=== PATIENT | male | born 1930 | race Caucasian/White ===

== ENCOUNTER 2016-09-26 09:08 | Day surgery (SDC) | payer MEDICARE ==
[2016-09-26] MEDS ORDERED: TETRACAINE HCL 0.5% 15 ML OPTH BTL OPTH ONE (13:37)
[2016-09-26] MEDS ORDERED: TOBRAMYCIN 0.3% OPTH DROP 5 ML BTL OPTH ONE (13:37)
[2016-09-26] MEDS ORDERED: DICLOFENAC SODIUM 2.5 ML DROPS OPTH ONE (13:37)
[2016-09-26] MEDS ORDERED: LIDOCAINE 2% MDV (20MG/ML) 20ML VIAL IV ONE ×2 (13:37→13:40)
[2016-09-26] MEDS ORDERED: PREDNISOLONE ACETATE 1% OPTH 10ML BOTTLE OPTH ONE (13:37)
[2016-09-26] MEDS ORDERED: EPINEPHRINE 1 MG/ML AMPUL SQ ONE (13:37)
[2016-09-26] MEDS ORDERED: TROPICAMIDE 1% 15ML BTL OP ONE (13:37)
[2016-09-26] MEDS ORDERED: NEOMYCIN/POLY./DEXAM OPTH OINT OPTH ONE (13:37)
[2016-09-26] MEDS ORDERED: PHENYLEPHRINE HCL 10% OPTH BTL OPTH ONE (13:37)
[2016-09-26] MEDS ORDERED: PROPOFOL 10 MG/ML VIAL IV ONE (13:40)
[2016-09-26] MEDS ORDERED: HYDRALAZINE 20MG/ML VIAL IV ONE (13:40)
--- NOTE | 2016-09-26 16:23 | OP NOTE CHAMES ---
DATE OF PROCEDURE: 09/26/16 PREOPERATIVE DIAGNOSES: 1. Nuclear sclerotic cataract, right eye. 2. Ocular hypertension, right eye. POSTOPERATIVE DIAGNOSES: 1. Nuclear sclerotic cataract, right eye. 2. Ocular hypertension, right eye. OPERATION: Phacoemulsification of cataractous lens with implantation of intraocular lens. LENS IMPLANT USED: Lorenzo Model PCB + 20.5 diopters. COMPLICATIONS: None. PROCEDURE IN DETAIL: Following a retrobulbar and facial block, the patient was prepped and draped in the usual fashion for eye surgery. A lid speculum was placed in the right eye after which a 2.4 mm tunnel wound was placed at the temporal limbus and dissected into clear cornea. A paracentesis was placed at 2 oclock hours to the left and right of the initial incision and the chamber deepened with Viscoelastic. The keratome was then used to enter the anterior chamber after which the continuous circular capsulorrhexis was accomplished without difficulty using a bent needle and a Utrata forceps. Hydrodissection and hydrodelineation of the lens was performed after which the nucleus of the lens was removed using the Phaco handpiece in the [id number] technique. The residual cortical material was irrigated and aspirated from the eye after which the bag and chamber were re-examined. The bag was re-inflated with Viscoelastic and the intraocular lens injected into the capsular bag where it centered well. The Viscoelastic was then copiously irrigated and aspirated from the eye after which the temporal tunnel wound and paracentesis were hydrated and the wounds were examined. They were noted to be watertight. The lid speculum was removed from the eye and the eye patched and shielded. The patient was transferred to the recovery room in satisfactory condition and given an appointment to be reexamined in the clinic later today or as directed by Dr. Mckenna. Emilio Mckenna M.D. Date & Time JOB NUMBER: [id number] MTDD
== END 2016-09-26 12:00 | disposition home or self-care (01) ==
LOC: EDBD → SUR 09:08
PROVIDERS: ATTEND Ophthalmology
DX: H25.11 Age-related nuclear cataract, right eye (principal); H40.051 Ocular hypertension, right eye
CPT/HCPCS: J0171

== ENCOUNTER 2016-10-10 10:06 | Day surgery (SDC) | payer MEDICARE ==
[2016-10-10] MEDS ORDERED: MIDAZOLAM HCL 2MG/2ML VIAL IV ONE (14:00)
[2016-10-10] MEDS ORDERED: LIDOCAINE 2% MDV (20MG/ML) 20ML VIAL IV ONE ×2 (14:00→14:26)
[2016-10-10] MEDS ORDERED: PROPOFOL 10 MG/ML VIAL IV ONE (14:00)
[2016-10-10] MEDS ORDERED: NEOMYCIN/POLY./DEXAM OPTH OINT OPTH ONE (14:26)
[2016-10-10] MEDS ORDERED: TETRACAINE HCL 0.5% 15 ML OPTH BTL OPTH ONE (14:26)
[2016-10-10] MEDS ORDERED: PHENYLEPHRINE HCL 10% OPTH BTL OPTH ONE (14:26)
[2016-10-10] MEDS ORDERED: TROPICAMIDE 1% 15ML BTL OP ONE (14:26)
[2016-10-10] MEDS ORDERED: DICLOFENAC SODIUM 2.5 ML DROPS OPTH ONE (14:26)
[2016-10-10] MEDS ORDERED: TOBRAMYCIN 0.3% OPTH DROP 5 ML BTL OPTH ONE (14:26)
[2016-10-10] MEDS ORDERED: PREDNISOLONE ACETATE 1% OPTH 10ML BOTTLE OPTH ONE (14:26)
[2016-10-10] MEDS ORDERED: EPINEPHRINE 1 MG/ML AMPUL SQ ONE (14:26)
--- NOTE | 2016-10-10 15:01 | OP NOTE CHAMES ---
DATE OF PROCEDURE: 10/10/16 PREOPERATIVE DIAGNOSIS: Dense nuclear sclerotic cataract, left eye. POSTOPERATIVE DIAGNOSIS: Dense nuclear sclerotic cataract, left eye. OPERATION: Phacoemulsification of cataractous lens with implantation of intraocular lens. LENS IMPLANT USED: Lorenzo Model PCB00 + 21.0 diopters. COMPLICATIONS: None. PROCEDURE IN DETAIL: Following a retrobulbar and facial block, the patient was prepped and draped in the usual fashion for eye surgery. A lid speculum was placed in the left eye after which a 2.4 mm tunnel wound was placed at the temporal limbus and dissected into clear cornea. A paracentesis was placed at 2 oclock hours to the left and right of the initial incision and the chamber deepened with Viscoelastic. The keratome was then used to enter the anterior chamber after which the continuous circular capsulorrhexis was accomplished without difficulty using a bent needle and a Utrata forceps. Hydrodissection and hydrodelineation of the lens was performed after which the nucleus of the lens was removed using the Phaco handpiece in the [id number] technique. The residual cortical material was irrigated and aspirated from the eye after which the bag and chamber were re-examined. The bag was re-inflated with Viscoelastic and the intraocular lens injected into the capsular bag where it centered well. The Viscoelastic was then copiously irrigated and aspirated from the eye after which the temporal tunnel wound and paracentesis were hydrated and the wounds were examined. They were noted to be watertight. The lid speculum was removed from the eye and the eye patched and shielded. The patient was transferred to the recovery room in satisfactory condition and given an appointment to be reexamined in the clinic later today or as directed by Dr. Mckenna. Emilio Mckenna M.D. Date & Time JOB NUMBER: [id number] MTDD
== END 2016-10-10 12:56 | disposition home or self-care (01) ==
LOC: SUR 10:06
PROVIDERS: ATTEND Ophthalmology
DX: H25.12 Age-related nuclear cataract, left eye (principal); I10 Essential (primary) hypertension; I48.91 Unspecified atrial fibrillation; Z95.0 Presence of cardiac pacemaker
CPT/HCPCS: J0171

== ENCOUNTER 2016-12-06 16:48 | Emergency (ER) | payer MEDICARE ==
[2016-12-06 17:38] LABS: BASO % 0.1 % (0-6); HEMATOCRIT 47.1 % (42.0-52.0); LYMPH % 3.9 % (16-45); MEAN CELL VOLUME 86.4 fl (81-97); MEAN CORPUSCULAR HEMOGLOBIN 27.5 pg (27-33); MEAN CORPUSCULAR HGB CONC 31.8 g/dl (32-36); MEAN PLATELET VOLUME 10.5 fl (7.4-10.4); MONO % 5.7 % (0-9); PLATELET COUNT 316 K/uL (130-400); RED BLOOD COUNT 5.45 M/uL (4.40-5.70); RED CELL DISTRIBUTION WIDTH 14.1 % (11.5-14.5)
[2016-12-06 17:47] LABS: WHITE BLOOD COUNT W/O DIFF 21.1 K/uL (4.2-12.2)
[2016-12-06 17:52] LABS: ANION GAP 15.2 (7-16); BLOOD UREA NITROGEN 42 mg/dL (9-20); CARBON DIOXIDE 24.8 mmol/L (22-30); CREATININE 1.2 mg/dL (0.66-1.25); EST GLOMERULAR FILTRATION RATE > 60 ml/min; GLUCOSE,RANDOM 164 mg/dL (70-110)
[2016-12-06] MEDS ORDERED: 0.9 % SODIUM CHLORIDE 1000ML 1,000 ML IV PRN (18:20)
--- NOTE | 2016-12-06 18:39 | Emergency Department Record ---
History of Present Illness - General Chief complaint: Extremity Problem Stated complaint: INFECTION IN FOOT Time Seen by Provider: 12/06/16 18:28 Source: Patient, Family Mode of Arrival: Wheelchair Limitations: Altered mental status - History of Present Illness Initial comments: 86 yo male presents to ED for evaluation of redness and black-discoloration to the left foot. Patient lives on his own with support from his adult children, and are unaware of when the foot began to become black. Family denies history of DM/HTN/elevated cholesterol, report his only health problem was the requirement of pacemaker for an "arrhythmia" in September of this year. MD Complaint: Extremity pain -: Unknown Location: Left, Foot History of Same: No Radiation: Proximal Consistency: Constant Improves with: Nothing Worsens with: Nothing - Related Data Home Medications Medication Instructions Recorded Confirmed Last Taken No Home Med [NO HOME MEDS] 12/06/16 12/06/16 Unknown Allergies Allergy/AdvReac Type Severity Reaction Status Date / Time No Known Drug Allergies Allergy Verified 12/06/16 17:13 Travel Screening - Travel/Exposure Within Last 30 Days Have you traveled within the last 30 days?: No - Travel/Exposure Within Last Year Have you traveled outside the [place] in the last year?: No - Additonal Travel Details Have you been exposed to anyone with a communicable illness?: No - Travel Symptoms Symptom Screening: None Review of Systems ROS unobtainable: Due to mental status Past Medical History - SOCIAL HISTORY Smoking Status: Never smoker Alcohol Use: None Drug Use: None - RESPIRATORY Hx Respiratory Disorders: No - CARDIOVASCULAR Hx Cardio Disorders: No Hx Abnormal EKG: Yes Hx Irregular Heartbeat: Yes (RECENT A-FIB WITH PACER PLACEMENT) Hx Pacemaker/Defib: Yes - NEURO Hx Neuro Disorders: No Comment:: VISION CHANGES LT EYE POSS. EARLY DEMENTIA - GI Hx GI Disorders: No - Hx Genitourinary Disorders: No - ENDOCRINE Hx Endocrine Disorders: No - MUSCULOSKELETAL Hx Musculoskeletal Disorders: No - PSYCH Hx Psych Problems: No - HEMATOLOGY/ONCOLOGY Hx Hematology/Oncology Disorders: No Family Medical History Any Significant Family History?: Yes Physical Exam - General General Appearance: Alert, Cooperative, No acute distress, Other (Patient is resting comfortably, gives rambling non-applicable answers to questions asked.) Limitations: Altered mental status - Head Head exam: Atraumatic, Normocephalic, Normal inspection Head exam detail: negative: Abrasion, Contusion, Reyes's sign, General tenderness, Hematoma, Laceration - Eye Eye exam: Normal appearance. negative: Conjunctival injection, Periorbital swelling, Periorbital tenderness, Scleral icterus - ENT Ear exam: negative: Auricular hematoma, Auricular trauma Nasal Exam: negative: Active bleeding, Discharge, Dried blood, Foreign body Mouth exam: negative: Drooling, Laceration, Muffled voice, Tongue elevation - Neck Neck exam: Normal inspection. negative: Meningismus, Tenderness - Respiratory Respiratory exam: Normal lung sounds bilaterally. negative: Respiratory distress, Rhonchi, Stridor, Wheezes - Cardiovascular Cardiovascular Exam: Regular rate, Normal rhythm, Normal heart sounds - GI/Abdominal GI/Abdominal exam: Soft. negative: Rebound, Rigid, Tenderness - Rectal Rectal exam: Deferred - exam: Deferred - Extremities Extremities exam: Tenderness, Other (Gangrene to the left little toe and lateral foot, great toe and medial foot, remaining middle three toes are erythematous with mild STS present.). negative: Calf tenderness, Pedal edema - Back Back exam: Reports: Other (Mild skin breakdown over the lower lumbar region). Denies: CVA tenderness (R), CVA tenderness (L) - Neurological Neurological exam: Alert. negative: Motor sensory deficit - Psychiatric Psychiatric exam: Normal affect, Normal mood - Skin Skin exam: Erythema, Other Type of lesion: negative: abrasion Course Vital Signs 12/06/16 16:50 Temperature 97.5 F L Pulse Rate 78 Respiratory 18 Rate Blood Pressure 139/95 Pulse Ox 99 - Reevaluation(s) Reevaluation #1: 12/06/16 18:29 Labs reviewed, BUN 42/Cretinine 1.2, WBC 21.1. Labs are otherwise grossly unremarkable for an acute process. Reevaluation #2: 12/06/16 18:39 Porfirio paged for transfer, Clindamycin initiated for antibiotic coverage as well. Reevaluation #3: 12/06/16 18:58 Case was discussed with Dr. Ac, will accept transfer. Patient and family updated on the plan for transfer when bed becomes available. Reevaluation #4: 12/06/16 19:50 CXR: No acute process Left foot: Findings suspicious for cellulitis, gas is present on my review of radiographs. Medical Decision Making - Lab Data Result diagrams: 12/06/16 17:20 12/06/16 17:20 Lab Results 12/06/16 12/06/16 Range/Units 17:20 17:20 WBC 21.1 H* (4.2-12.2) K/uL RBC 5.45 (4.40-5.70) M/uL Hgb 15.0 (14.0-18.0) gm/dl Hct 47.1 (42.0-52.0) % MCV 86.4 (81-97) fl MCH 27.5 (27-33) pg MCHC 31.8 L (32-36) g/dl RDW 14.1 (11.5-14.5) % Plt Count 316 (130-400) K/uL MPV 10.5 H (7.4-10.4) fl Neutrophils % 89.0 H (47-80) % Band Neutrophils % 0.0 (0-5) % Lymphocytes % 11.0 L (16-45) % Monocytes % 0.0 (0-9) % Eosinophils % 0.0 (0-6) % Basophils % 0.0 (0-6) % Sodium 139 (136-145) mmol/L Potassium 4.6 (3.5-5.1) mmol/L Chloride 99 (98-107) mmol/L Carbon Dioxide 24.8 (22-30) mmol/L Anion Gap 15.2 (7-16) BUN 42 H (9-20) mg/dL Creatinine 1.2 (0.66-1.25) mg/dL Estimated GFR > 60 ml/min Random Glucose 164 H (70-110) mg/dL Calcium 9.4 (8.5-10.1) mg/dL Disposition Disposition: Transfer Clinical Impression: Gangrene of foot, Renal insufficiency Disposition: Acute Care Hospital Transfer Transfer To: [facility] Reason For Transfer: Gangrene Accepting Physician: Yashira Time Discussed w/Accepting Physician: 18:59 Condition: (2) Stable Forms: Patient Portal Access Time of Disposition: 18:59
[2016-12-06] MEDS ORDERED: CLINDAMYCIN 600MG/50ML PREMIX 600 MG in DEXTROSE 1 BAG IV ONE (18:45)
== END 2016-12-06 20:15 | disposition short-term general hospital (02) ==
LOC: ER 16:48 → EDBD 16:48 → ER 20:15
DX: A48.0 Gas gangrene (principal); N28.9 Disorder of kidney and ureter, unspecified; I48.91 Unspecified atrial fibrillation; Z95.0 Presence of cardiac pacemaker
CPT/HCPCS: 71010; 80048; 85027; 85651; 96361; 96365; 99285